=== PATIENT | female | born 1960 | race Caucasian/White ===

== ENCOUNTER → 2022-07-20 09:09 | Outpatient (BNVA) | payer MEDICARE, SELFPAY | PROVIDERS: Family Provider Family Medicine; PCP Family Medicine; Referring Provider Nurse Practitioner Family; Visit Provider Anesthesiology Pain Medicine | DX: M47.812 Spondylosis without myelopathy or radiculopathy, cervical region (principal); M47.814 Spondylosis without myelopathy or radiculopathy, thoracic region; M43.26 Fusion of spine, lumbar region | CPT/HCPCS: 99205 ==